=== PATIENT | male | born 1985 | race Caucasian/White ===

== ENCOUNTER 2016-10-09 08:03 | Emergency (ER) | payer OTHER ==
[2016-10-09] MEDS ORDERED: Acetaminophen 500 MG TAB ONE (08:34)
--- NOTE | 2016-10-09 17:39 | RAD ---
LEFT ANKLE THREE VIEWS 10/09/2016 FINDINGS: No fracture is seen. The joint appears normal. All bones appear intact. IMPRESSION: No acute findings. POS: HOME
--- NOTE | 2016-10-09 17:40 | RAD ---
LEFT FOOT THREE VIEWS 10/09/2016 FINDINGS: No fracture is seen. All bones appear intact. IMPRESSION: No acute finding. POS: HOME
== END 2016-10-09 09:03 | disposition home or self-care (01) ==
LOC: BURERS 08:03
DX: S99.922A Unspecified injury of left foot, initial encounter (principal); F17.210 Nicotine dependence, cigarettes, uncomplicated; X50.9XXA Other and unspecified overexertion or strenuous movements or postures, initial encounter

== ENCOUNTER 2017-03-27 00:30 | Emergency (ER) | payer MEDICARE, OTHER ==
[2017-03-27] MEDS ORDERED: Famotidine In NaCl 20 mg/50 ml Premix Bag ONE (01:07)
[2017-03-27] MEDS ORDERED: Ondansetron HCl/PF 4 MG/2 ML Vial ONE (01:07)
[2017-03-27 01:12] LABS: Bilirubin Small (Negative); Blood, Urine Negative (Negative); Clarity Clear (Clear); Glucose, Urine (Dipstick) Negative (Negative); Leukocyte Negative (Negative); Nitrite Negative (Negative); Protein, Urine (Dipstick) Negative (Neg-Trace); Specific Gravity, Urine 1.015 (1.005-1.030); Urobilinogen 0.2 mg/dL (0.2-1.0); pH, Urine 5.5 (5.0-9.0)
[2017-03-27 01:20] LABS: #Basophils 0.1 thou/uL (0.0-0.2); #Eosinphils 0.1 thou/uL (0.0-0.7); #Lymphocytes 2.4 thou/uL (1.20-3.40); #Neutrophils 4.9 thou/uL (1.40-6.50); %Basophils 0.9 % (0.0-1.0); %Eosinophils 1.7 % (0.0-10.0); %Lymphocytes 27.9 % (21.0-51.0); %Neutrophils 57.5 % (42.0-75.0); Hemoglobin 16.6 g/dL (14.0-18.0); Mean Corpuscular HGB CONC 34.2 g/dL (32.0-36.0); Mean Corpuscular Hemoglobin 31.3 pg (27.0-31.0); Mean Corpuscular Volume 91.5 fl (80.0-94.0); Mean Platelet Volume 9.1 fL (7.4-10.4); Platelet Count 180 thou/uL (130-400); RBC Distribution Width 11.3 % (11.5-14.5); Red Blood Cell (RBC) Count 5.32 mill/uL (4.70-6.10); White Blood Cell (WBC) Count 8.6 thou/uL (4.8-10.8)
[2017-03-27 01:35] LABS: ALT (SGPT) 55 U/L (8-55); AST (SGOT) 29 U/L (5-34); Albumin 4.1 g/dL (3.5-5.0); Alkaline Phosphatase 64 U/L (40-150); Anion Gap 14 mmol/L (10-20); BUN (Urea Nitrogen) 10 mg/dL (8.9-20.6); Bilirubin, Total 0.9 mg/dL (0.2-1.2); Calc. Creatinine Clearance 0 mL/min (70-130); Calcium 9.3 mg/dL (7.8-10.44); Carbon Dioxide 24 mmol/L (22-29); Chloride 104 mmol/L (98-107); Estimated GFR-MDRD Greater than 90; Globulin 3.1 g/dL (2.4-3.5); Glucose 97 mg/dL (70-105); Lipase 55 U/L (8-78); Protein, Total 7.2 g/dL (6.0-8.3); Sodium 138 mmol/L (136-145)
[2017-03-27] MEDS ORDERED: Ketorolac Tromethamine 30 MG/ML VIAL ONE (01:42)
[2017-03-27] MEDS ORDERED: Bisacodyl 10 MG SUPP ONE (02:04)
[2017-03-27] MEDS ORDERED: Magnesium Citrate 300 ML BOT ONE (02:04)
--- NOTE | 2017-03-27 07:12 | RAD ---
ABDOMEN: Date: 03/27/17 Upright views of the abdomen were provided. There is no sign of free air. The abdominal gas pattern i s normal with no sign of distended bowel. A minimal amount of fluid is noted in perhaps a loop or two of small bowel. There are no pathologic calcifications. A multicurve scoliosis was noted. IMPRESSION: No definite acute finding. POS: HOME
== END 2017-03-27 02:08 | disposition home or self-care (01) ==
LOC: BURERS 00:30
DX: K59.00 Constipation, unspecified (principal); F17.210 Nicotine dependence, cigarettes, uncomplicated
CPT/HCPCS: 74000; 80053; 81003; 83690; 85025; 94760; 96365; 96375; J1885; J2405

== ENCOUNTER 2017-08-19 18:20 | Emergency (ER) | payer MEDICARE, OTHER ==
[2017-08-19] MEDS ORDERED: Cephalexin 500 MG CAP ONE (19:37)
== END 2017-08-19 19:47 | disposition home or self-care (01) ==
LOC: BURERS 18:20
DX: S61.412D Laceration without foreign body of left hand, subsequent encounter (principal); F17.210 Nicotine dependence, cigarettes, uncomplicated; W26.0XXA Contact with knife, initial encounter; Y92.009 Unspecified place in unspecified non-institutional (private) residence as the place of occurrence of the external cause
CPT/HCPCS: 12001; J2001

== ENCOUNTER 2018-07-07 22:12 | Emergency (ER) | payer MEDICAID, MEDICARE, OTHER ==
[2018-07-07] MEDS ORDERED: Ketorolac Tromethamine 60 MG/2 ML VIAL ONE (22:29)
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
== END 2018-07-07 23:00 | disposition home or self-care (01) ==
LOC: BURERS 22:12
DX: S20.212A Contusion of left front wall of thorax, initial encounter (principal); F17.210 Nicotine dependence, cigarettes, uncomplicated; V29.9XXA Motorcycle rider (driver) (passenger) injured in unspecified traffic accident, initial encounter
CPT/HCPCS: 96372; J1885

== ENCOUNTER 2019-02-01 14:22 | Emergency (ER) | payer MEDICARE ==
[2019-02-01] MEDS ORDERED: Ondansetron PF 4 MG/2 ML Vial ONE (15:08)
[2019-02-01 15:29] LABS: #Eosinphils 0.2 thou/uL (0.0-0.7); #Lymphocytes 0.4 thou/uL (1.20-3.40); #Monocytes 0.6 thou/uL (0.11-0.59); #Neutrophils 9.7 thou/uL (1.40-6.50); %Basophils 0.4 % (0.0-1.0); %Eosinophils 1.6 % (0.0-10.0); %Lymphocytes 3.6 % (21.0-51.0); %Neutrophils 89.3 % (42.0-75.0); Hemoglobin 17.6 g/dL (14.0-18.0); Mean Corpuscular HGB CONC 32.6 g/dL (32.0-36.0); Mean Corpuscular Hemoglobin 30.3 pg (27.0-31.0); Mean Corpuscular Volume 92.7 fL (78.0-98.0); Mean Platelet Volume 8.4 fL (7.4-10.4); Platelet Count 159 thou/uL (130-400); RBC Distribution Width 12.4 % (11.5-14.5); White Blood Cell (WBC) Count 10.8 thou/uL (4.8-10.8)
[2019-02-01 15:38] LABS: ALT (SGPT) 28 U/L (8-55); AST (SGOT) 18 U/L (5-34); Albumin 4.7 g/dL (3.5-5.0); Alcohol Less than 10 mg/dL (Less than 10); Alkaline Phosphatase 66 U/L (40-110); Anion Gap 15 mmol/L (10-20); BUN (Urea Nitrogen) 13 mg/dL (8.9-20.6); Bilirubin, Total 1.7 mg/dL (0.2-1.2); Calc. Creatinine Clearance 0 mL/min (70-130); Calcium 9.7 mg/dL (7.8-10.44); Carbon Dioxide 22 mmol/L (22-29); Chloride 106 mmol/L (98-107); Estimated GFR-MDRD Greater than 90; Globulin 2.9 g/dL (2.4-3.5); Glucose 129 mg/dL (70-105); Lipase 20 U/L (8-78); Magnesium 1.8 mg/dL (1.6-2.6); Potassium 4.1 mmol/L (3.5-5.1); Protein, Total 7.6 g/dL (6.0-8.3); Sodium 139 mmol/L (136-145)
== END 2019-02-01 17:08 | disposition home or self-care (01) ==
LOC: BURERS 14:22
DX: R11.2 Nausea with vomiting, unspecified (principal); R19.7 Diarrhea, unspecified; I10 Essential (primary) hypertension; F32.9 Major depressive disorder, single episode, unspecified; F17.210 Nicotine dependence, cigarettes, uncomplicated
CPT/HCPCS: 80053; 80307; 83690; 83735; 85025; 96361; 96374; J2405

== ENCOUNTER 2020-09-14 14:10 | Emergency (ER) | payer MEDICARE ==
[2020-09-14 15:03] LABS: #Basophils 0.1 thou/uL (0.0-0.2); #Eosinphils 0.2 thou/uL (0.0-0.7); #Lymphocytes 1.4 thou/uL (1.20-3.40); #Monocytes 0.4 thou/uL (0.11-0.59); #Neutrophils 3.6 thou/uL (1.40-6.50); %Basophils 1.6 % (0.0-1.0); %Eosinophils 3.6 % (0.0-10.0); %Lymphocytes 24.6 % (21.0-51.0); %Monocytes 6.8 % (0.0-10.0); %Neutrophils 63.4 % (42.0-75.0); Hemoglobin 17.2 g/dL (14.0-18.0); Mean Corpuscular HGB CONC 31.9 g/dL (32.0-36.0); Mean Corpuscular Hemoglobin 31.6 pg (27.0-31.0); Mean Corpuscular Volume 98.9 fL (78.0-98.0); Platelet Count 189 thou/uL (130-400); RBC Distribution Width 12.1 % (11.5-14.5); Red Blood Cell (RBC) Count 5.45 mill/uL (4.70-6.10); White Blood Cell (WBC) Count 5.6 thou/uL (4.8-10.8)
[2020-09-14 15:20] LABS: ALT (SGPT) 95 U/L (8-55); AST (SGOT) 49 U/L (5-34); Albumin 4.6 g/dL (3.5-5.0); Alkaline Phosphatase 50 U/L (40-110); Anion Gap 15 mmol/L (10-20); BUN (Urea Nitrogen) 9 mg/dL (8.9-20.6); Bilirubin, Total 1.3 mg/dL (0.2-1.2); Calc. Creatinine Clearance 0 mL/min (70-130); Calcium 9.8 mg/dL (7.8-10.44); Carbon Dioxide 27 mmol/L (22-29); Chloride 102 mmol/L (98-107); Globulin 2.6 g/dL (2.4-3.5); Glucose 106 mg/dL (70-105); Potassium 4.1 mmol/L (3.5-5.1); Protein, Total 7.2 g/dL (6.0-8.3); Sodium 140 mmol/L (136-145)
[2020-09-14] MEDS ORDERED: Cefepime 2 GM VIAL ONE (16:07)
[2020-09-14] MEDS ORDERED: Sodium Chloride 0.9% 100 ML ONE (16:08)
[2020-09-14] MEDS ORDERED: Morphine 4 MG/ML VIAL ONE (16:15)
[2020-09-14] MEDS ORDERED: Boostrix 0.5 ML (Tdap) VIAL ONE (16:24)
[2020-09-14 17:14] LABS: SARS-CoV-2 NAA Rapid Test Not Detected (NotDetected)
[2020-09-14] MEDS ORDERED: Bacitracin Zinc Ointment 30 gm TUBE ONE (17:50)
[2020-09-14] MEDS ORDERED: Thrombin 5000 UNITS/5 ML VIAL ONE (17:50)
[2020-09-14] MEDS ORDERED: Sodium Chloride 0.9% 40 ML ONE (17:50)
[2020-09-14] MEDS ORDERED: Bupivacaine PF 0.5% 30 ML VIAL ONE (17:50)
== END 2020-09-14 17:06 | disposition short-term general hospital (02) ==
LOC: BURERS 14:10
DX: M65.9 Synovitis and tenosynovitis, unspecified (principal); I10 Essential (primary) hypertension; F17.210 Nicotine dependence, cigarettes, uncomplicated; Z20.822 Contact with and (suspected) exposure to COVID-19; Z23 Encounter for immunization
CPT/HCPCS: 0240U; 36415; 80053; 83605; 85025; 86140; 87040; 90471; 90715; 96365; 96375; J0692; J2270; J3490; S0020

== ENCOUNTER 2020-11-24 16:06 | Outpatient (CLI) | payer MEDICARE | END 2020-11-24 16:07 | disposition home or self-care (01) | LOC: BURRAD 16:06 | PROVIDERS: ATTEND Family Medicine | DX: R50.9 Fever, unspecified (principal); M25.50 Pain in unspecified joint; M79.10 Myalgia, unspecified site; R63.4 Abnormal weight loss | CPT/HCPCS: 71046 ==

== ENCOUNTER 2020-11-27 07:27 | Emergency (ER) | payer MEDICARE ==
[2020-11-27] MEDS ORDERED: Dexamethasone 10 MG/ML VIAL ONE (08:23)
== END 2020-11-27 09:29 | disposition home or self-care (01) ==
LOC: BURERS 07:27
DX: J02.9 Acute pharyngitis, unspecified (principal); I10 Essential (primary) hypertension; K21.9 Gastro-esophageal reflux disease without esophagitis; F17.210 Nicotine dependence, cigarettes, uncomplicated
CPT/HCPCS: 87081; 87430; 96372; 99283; J1100